=== PATIENT | female | born 1970 | race Caucasian/White ===

== ENCOUNTER 2020-04-24 14:16 | Outpatient (REF) | payer BC, SELFPAY ==
[2020-04-30 06:28] LABS: SARS-CoV-2 RNA Undetected (Undetected); SARS-CoV-2 Specimen Source Nasal
== END 2020-04-24 14:36 ==
LOC: NCHCN 14:16
PROVIDERS: Visit Provider Physician Assistant
DX: R09.81 Nasal congestion (principal)
CPT/HCPCS: U0003

== ENCOUNTER 2020-05-06 12:07 | Outpatient (REF) | payer BC, SELFPAY ==
[2020-05-11 00:49] LABS: SARS-CoV-2 RNA Undetected (Undetected); SARS-CoV-2 Specimen Source Nasal
== END 2020-05-06 12:27 ==
LOC: NCHCN 12:07
PROVIDERS: PCP Physician Assistant; Visit Provider Physician Assistant
DX: Z20.828 Contact with and (suspected) exposure to other viral communicable diseases (principal)
CPT/HCPCS: U0003

== ENCOUNTER 2021-04-15 09:44 | Outpatient (REF) | payer BC, SELFPAY ==
[2021-04-15 19:57] LABS: Anion Gap 7.3 mmol/L (3-11); BUN 16 mg/dL (7-18); CO2 29.7 mmol/L (21.0-32.0); CREATININE 0.7 mg/dL (0.55-1.02); Calcium 9.4 mg/dL (8.5-10.1); Calculated LDL 94 mg/dL (<100); Chloride 104 mmol/L (98-107); Cholesterol 186 mg/dL (<200); Glucose 89 mg/dL (74-106); HDL Cholesterol 81 mg/dL (40-60); Potassium 4.3 mmol/L (3.5-5.1); Sodium 141 mmol/L (136-145); Triglyceride 59 mg/dL (<150)
[2021-04-16 17:42] LABS: FSH 94.6 mIU/mL (See Note)
== END 2021-04-15 09:45 | disposition home or self-care (01) ==
LOC: NCHCN 09:44
PROVIDERS: PCP Physician Assistant; Visit Provider Physician Assistant
DX: Z00.00 Encounter for general adult medical examination without abnormal findings (principal); N95.1 Menopausal and female climacteric states; Z13.220 Encounter for screening for lipoid disorders
CPT/HCPCS: 80048; 80061; 83001; 83002

== ENCOUNTER 2021-09-05 01:54 | Outpatient (CLI) | payer OTHER, SELFPAY ==
--- NOTE | 2021-09-05 13:55 | DI.RAD_ITS ---
Exam(s) XR LUMBAR SPINE COMPLETE EXAM: XR LUMBAR SPINE COMPLETE CLINICAL HISTORY: DEGENERATIVE DISC DISEASE M51.36 LOW BACK PAIN M54.59. TECHNIQUE: 2D digital imaging was performed. COMPARISON: No exams were available for comparison FINDINGS: There is no evidence of fracture or listhesis. No pars defects. The main finding is advanced disc space narrowing at L5-S1 level. L4-5 and other disc spaces above t his level exhibit normal height. There does not appear to be significant facet arthropathy. Sacroil iac joints also appear unremarkable. No scoliosis. IMPRESSION: Advanced disc space narrowing at L5-S1 level. DATA REPOSITORY: RADIATION DOSE DELIVERED:
== END 2021-09-05 02:14 ==
PROVIDERS: PCP Physician Assistant; Visit Provider Nurse Practitioner Family
DX: M54.59 Other low back pain (principal); M51.36 Other intervertebral disc degeneration, lumbar region; M48.07 Spinal stenosis, lumbosacral region
CPT/HCPCS: 72110

== ENCOUNTER 2023-12-22 13:22 | Outpatient (REF) | payer OTHER, SELFPAY ==
[2023-12-22 20:48] LABS: WBC >50 HPF (0-5)
[2023-12-22 20:49] LABS: Bacteria Rare HPF (Negative); C & S Indicated? No; Casts Negative LPF (Negative); Crystals Negative HPF (Negative); Epithelial Cells Few HPF (Negative); Mucus Trace (Negative)
== END 2023-12-22 13:23 | disposition home or self-care (01) ==
LOC: NCHCN 13:22
PROVIDERS: PCP Physician Assistant; Visit Provider Nurse Practitioner Family
DX: R30.0 Dysuria (principal); R82.998 Other abnormal findings in urine
CPT/HCPCS: 81015; 87086

== ENCOUNTER 2024-12-05 11:43 | Outpatient (REF) | payer OTHER, SELFPAY ==
[2024-12-05 22:16] LABS: ALT 26 U/L (14-59); AST 21 U/L (15-37); Alkaline Phosphatase 53 U/L (46-116); Anion Gap 5.1 mmol/L (3-11); BUN 13 mg/dL (7-18); Bilirubin, Total 0.9 mg/dL (0.2-1.0); CO2 29.9 mmol/L (21.0-32.0); CREATININE 0.8 mg/dL (0.55-1.02); Calcium 9.1 mg/dL (8.5-10.1); Calculated LDL 96 mg/dL (<100); Chloride 104 mmol/L (98-107); Cholesterol 198 mg/dL (<200); Glucose 99 mg/dL (74-106); HDL Cholesterol 92 mg/dL (>or=50); Potassium 4.5 mmol/L (3.5-5.1); Sodium 139 mmol/L (136-145); TSH (W/Ref FT4) 4.18 uIU/mL (0.36-3.74); Total Protein 7.5 g/dL (6.4-8.2); Triglyceride 54 mg/dL (<150)
[2024-12-05 22:44] LABS: FREE T4 0.72 ng/dL (0.76-1.46)
== END 2024-12-05 11:44 | disposition home or self-care (01) ==
LOC: NCHCN 11:43
PROVIDERS: PCP Physician Assistant; Visit Provider Physician Assistant
DX: Z13.220 Encounter for screening for lipoid disorders (principal); Z13.29 Encounter for screening for other suspected endocrine disorder
CPT/HCPCS: 80053; 80061; 84439; 84443

== ENCOUNTER 2025-01-25 11:30 | Outpatient (REF) | payer OTHER, SELFPAY ==
[2025-01-25 19:20] LABS: TSH (W/Ref FT4) 0.60 uIU/mL (0.36-3.74)
== END 2025-01-25 11:31 | disposition home or self-care (01) ==
LOC: NCHCN 11:30
PROVIDERS: PCP Physician Assistant; Visit Provider Physician Assistant
DX: E03.9 Hypothyroidism, unspecified (principal)
CPT/HCPCS: 84443; 86376; 86800